=== PATIENT | female | born 1945 | race Caucasian/White ===

== ENCOUNTER 2024-09-05 15:58 | Emergency (ER) | payer OTHER ==
[2024-09-05 18:34] VITALS: RESP 18; TEMP 98.1; BMI 20.9
[2024-09-05 19:38] LABS: HEMATOCRIT 38.1 % (32.4-45.2); HEMOGLOBIN 12.8 G/dL (10.7-15.3); MCH 29.5 pg (25.7-33.7); MCHC 33.6 g/dl (32.0-36.0); MEAN CELL VOLUME 87.7 fl (80-96); MEAN PLT VOLUME 9.5 fl (7.5-11.1); PLATELET COUNT 224.5 10^3/uL (134-434); RBC 4.34 10^6/uL (3.60-5.2); RDW 14.9 % (11.6-15.6); WHITE BLOOD COUNT 7.1 10^3/uL (4.0-10.8)
[2024-09-05 19:39] LABS: PROTHROMBIN TIME (PATIENT) 11.4 SEC (9.7-13.0)
[2024-09-05 19:41] LABS: ACTIVATED PTT 29.4 SECONDS (25.2-36.5)
[2024-09-05 19:50] LABS: ALBUMIN 4.1 g/dl (3.4-5.0); ALK PHOS 36 U/L (45-117); ANION GAP 7 mmol/L (4-13); BILIRUBIN,TOTAL 0.7 mg/dl (0.2-1); CHLORIDE 104 mmol/L (98-107); CO2 26 mmol/L (21-32); CREATININE 0.8 mg/dl (0.6-1.3); GLUCOSE,RANDOM 98 mg/dl (74-106); MAGNESIUM 2.1 mg/dL (1.8-2.4); POTASSIUM 4.1 mmol/L (3.5-5.1); SGOT/AST 20 U/L (15-37); SGPT/ALT 19 U/L (7-52); SODIUM 137 mmol/L (136-145); TOT PROT 6.3 g/dl (6.4-8.2)
[2024-09-05 21:25] VITALS: BP 141/81; PULSE 87
[2024-09-05 22:09] LABS: PLATELET ESTIMATE ADEQUATE
== END 2024-09-06 01:05 | disposition home or self-care (01) ==
LOC: FER 15:58
DX: R00.2 Palpitations (principal); R06.02 Shortness of breath
CPT/HCPCS: 36415; 71045-TC-FY; 71275-TC; 80053; 81003; 83735; 84443; 84484; 85025; 85610; 85730; 93005; 99285-25; Q9967